=== PATIENT | male | born 1975 | race Caucasian/White ===

== ENCOUNTER 2020-02-19 17:38 | Emergency (ER) | payer BC, OTHER ==
[2020-02-19 17:48] VITALS: BMI 22.9
[2020-02-19] MEDS ORDERED: KETOROLAC TROMETHAMINE 60 MG/2 ML VIAL IM ONE (18:11)
[2020-02-19] MEDS ORDERED: LIDOCAINE 5% TOPICAL PATCH TP ONE (18:30)
[2020-02-19] MEDS ORDERED: KETOROLAC TROMETHAMINE 60 MG/2 ML VIAL ONE (18:56)
[2020-02-19] MEDS ORDERED: LIDOCAINE 5% TOPICAL PATCH ONE (18:56)
[2020-02-19 20:20] LABS: URINE APPEARANCE CLEAR; URINE BILIRUBIN NEGATIVE (NEGATIVE); URINE COLOR YELLOW; URINE GLUCOSE (UA) NEGATIVE (NEGATIVE); URINE KETONE TRACE (NEGATIVE); URINE LEUK ESTERASE NEGATIVE (NEGATIVE); URINE NITRITE NEGATIVE (NEGATIVE); URINE PROTEIN NEGATIVE (NEGATIVE); URINE UROBILINOGEN 0.2 mg/dL (0.2-1.0)
[2020-02-19 20:30] VITALS: BP 131/82; PULSE 82; TEMP 98.3
[2020-02-20] MEDS ORDERED: LIDOCAINE PATCH REMOVAL MC SCH (07:00)
== END 2020-02-19 20:48 | disposition home or self-care (01) ==
LOC: JER 17:38
PROC: 3E0233Z Introduction of Anti-inflammatory into Muscle, Percutaneous Approach (ICD-10-PCS; principal; 2020-02-19)
DX: M54.5 Low back pain (principal)
CPT/HCPCS: 72100-TC-FY; 72170-TC-FY; 73523-TC-FY; 81003; 99285-25